=== PATIENT | female | born 1995 | race Caucasian/White ===

== ENCOUNTER 2016-08-23 18:54 | Emergency (ER) | payer BC | END 2016-08-23 21:40 | disposition left against medical advice (07) | LOC: UCEAST 18:54 | DX: J02.9 Acute pharyngitis, unspecified (principal); R05 Cough; R50.9 Fever, unspecified; Z53.21 Procedure and treatment not carried out due to patient leaving prior to being seen by health care provider ==

== ENCOUNTER 2016-08-23 20:55 | Emergency (ER) | payer BC ==
[2016-08-23 21:27] VITALS: BP 125/78
[2016-08-23] MEDS ORDERED: predniSONE TAB* 20 MG PO ONE (21:58)
--- NOTE | 2016-08-23 22:00 | UC ---
Throat Pain/Nasal Prabhu HPI - HPI Summary HPI Summary: 21 YO FEMALE WITH SORE THROAT X 2 DAYS HURTS TO SWALLOW NO FEVER HOARSE TODAY - History of Current Complaint Chief Complaint: UCGeneralIllness Stated Complaint: ST,COUGH,FEVER Time Seen by Provider: 08/23/16 21:54 Hx Obtained From: Patient Hx Last Menstrual Period: Depo injection Onset/Duration: Gradual Onset, Lasting Days Severity: Moderate Pain Intensity: 4 Pain Scale Used: 0-10 Numeric Cough: None Associated Signs & Symptoms: Positive: Negative - Allergies/Home Medications Allergies/Adverse Reactions: Allergies Allergy/AdvReac Type Severity Reaction Status Date / Time Ondansetron [From Zofran] Allergy Severe Hives Verified 08/23/16 21:17 Home Medications: Home Medications medroxyPROGESTERone ACETATE* [DEPO-Provera*] 1 inj SEE INSTRUCTIONS 08/23/16 [ History Confirmed 08/23/16] PMH/Surg Hx/FS Hx/Imm Hx Previously Healthy: Yes Endocrine History Of: Denies: Diabetes Cardiovascular History Of: Denies: Hypertension, Pacemaker/ICD Respiratory History Of: Reports: Asthma GI/ History Of: Denies: Renal Disease - Surgical History Surgical History: None - Family History Known Family History: Positive: Hypertension, Respiratory Disease - Social History Alcohol Use: Rare Substance Use Type: None Smoking Status (MU): Former Smoker Type: Cigarettes Amount Used/How Often: 1 pack per month Have You Smoked in the Last Year: No - Immunization History Most Recent Influenza Vaccination: 2015 Most Recent Tetanus Shot: UTD Most Recent Pneumonia Vaccination: N/A Vaccination Up to Date: Yes Review of Systems Constitutional: Negative Skin: Negative Eyes: Negative ENT: Sore Throat Respiratory: Negative Cardiovascular: Negative Gastrointestinal: Negative Genitourinary: Negative Motor: Negative Neurovascular: Negative Musculoskeletal: Negative Neurological: Negative Psychological: Negative All Other Systems Reviewed And Are Negative: Yes Physical Exam Triage Information Reviewed: Yes Appearance: Well-Appearing, No Pain Distress, Well-Nourished Vital Signs: Initial Vital Signs Temp 99.8 F 08/23/16 21:25 Pulse 98 08/23/16 21:25 Resp 18 08/23/16 21:25 BP 125/78 08/23/16 21:25 Pulse Ox 100 08/23/16 21:25 Vital Signs Reviewed: Yes Eyes: Positive: Conjunctiva Clear ENT: Positive: Hearing grossly normal, Pharyngeal erythema, TMs normal, Other: - HOARSE. Negative: Nasal congestion, Nasal drainage, Tonsillar swelling, Tonsillar exudate Neck: Positive: Supple, Nontender, No Lymphadenopathy Respiratory: Positive: Lungs clear, Normal breath sounds, No respiratory distress, No accessory muscle use Cardiovascular: Positive: RRR, No Murmur Musculoskeletal: Positive: ROM Intact, No Edema Neurological: Positive: Alert Psychological Exam: Normal Skin Exam: Normal Throat Pain/Nasal Course/Dx - Differential Dx/Diagnosis Provider Diagnoses: PHARYNGITIS. LARYNGITIS Discharge - Discharge Plan Condition: Stable Disposition: HOME Prescriptions: Prednisone 60 mg PO DAILY #6 tab Patient Education Materials: Pharyngitis (ED) Referrals: No Primary Care Phys,NOPCP [Primary Care Provider] - Additional Instructions: RECHECK IN 3-4 DAYS IF NOT BETTER TYLENOL RECHECK FOR NEW OR WORSENING SYMPTOMS
== END 2016-08-23 22:19 | disposition home or self-care (01) ==
LOC: UCCORT 20:55
DX: J02.9 Acute pharyngitis, unspecified (principal); J04.0 Acute laryngitis; J45.909 Unspecified asthma, uncomplicated; Z87.891 Personal history of nicotine dependence
CPT/HCPCS: 87651; 99212; G0463; J7512

== ENCOUNTER 2016-08-28 18:51 | Emergency (ER) | payer BC ==
[2016-08-28 20:31] VITALS: BP 117/73
--- NOTE | 2016-08-28 20:45 | ED ---
Influenza-Like Illness - HPI Summary HPI Summary: 21 yr old female with several days of symptoms including, runny nose, sore throat and now coughing. She states she was seen last week, had swollen tonsils and was put on prednisone. She states her strep screen was negative. She is now having a cough, dry and non productive with temp this morning. She is not SOB, and has no CP. She has no other complaints. - History of Current Complaint Chief Complaint: UCRespiratory Time Seen by Provider: 08/28/16 20:30 - Allergy/Home Medications Allergies/Adverse Reactions: Allergies Allergy/AdvReac Type Severity Reaction Status Date / Time Ondansetron [From Zofran] Allergy Intermediate Hives Verified 08/28/16 20:31 PMH/Surg Hx/FS Hx/Imm Hx Endocrine/Hematology History: Denies: Hx Diabetes Cardiovascular History: Denies: Hx Hypertension, Hx Pacemaker/ICD Respiratory History: Reports: Hx Asthma History: Denies: Hx Renal Disease Sensory History: Denies: Hx Hearing Aid Psychiatric History: Denies: Hx Panic Disorder Infectious Disease History: No Infectious Disease History: Denies: History Other Infectious Disease, Traveled Outside the [place] in Last 30 Days - Family History Known Family History: Positive: None, Hypertension, Respiratory Disease - Social History Alcohol Use: Rare Substance Use Type: Reports: None Smoking Status (MU): Former Smoker Type: Cigarettes Amount Used/How Often: 1 pack per month Have You Smoked in the Last Year: No Review of Systems Positive: Fever Positive: Sore Throat, Nasal Discharge Positive: Cough All Other Systems Reviewed And Are Negative: Yes Physical Exam Triage Information Reviewed: Yes Vital Signs On Initial Exam: Initial Vitals Temp Pulse Resp BP Pulse Ox 99.3 F 66 14 117/73 100 08/28/16 20:24 08/28/16 20:24 08/28/16 20:24 08/28/16 20:24 08/28/16 20:24 Vital Signs Reviewed: Yes Appearance: Positive: Well-Appearing, No Pain Distress, Well-Nourished Skin: Positive: Warm Head/Face: Positive: Normal Head/Face Inspection Eyes: Positive: Normal, EOMI ENT: Positive: Normal ENT inspection, Hearing grossly normal, Pharynx normal Neck: Positive: Supple Respiratory/Lung Sounds: Positive: Clear to Auscultation, Breath Sounds Present Cardiovascular: Positive: Normal, RRR. Negative: Murmur Abdomen Description: Positive: Nontender Musculoskeletal: Positive: Normal, Strength/ROM Intact Neurological: Positive: Normal, Sensory/Motor Intact, Alert, Oriented to Person Place, Time, CN Intact II-III Diagnostics - Vital Signs Vital Signs Temp Pulse Resp BP Pulse Ox 08/28/16 20:24 99.3 F 66 14 117/73 100 - Laboratory Lab Statement: Any lab studies that have been ordered have been reviewed, and results considered in the medical decision making process. Flu Symptom Course/Dx - Course Course Of Treatment: 21 yr old female with URI symptoms and cough. DC home symptomatic treatment prn. FU PMD - Diagnoses Provider Diagnoses: URI (upper respiratory infection) Discharge - Discharge Plan Condition: Good Disposition: HOME Patient Education Materials: Cold Symptoms (ED) Referrals: Fanta Black MD [Primary Care Provider] -
== END 2016-08-28 20:56 | disposition home or self-care (01) ==
LOC: UCCORT 18:51
DX: J06.9 Acute upper respiratory infection, unspecified (principal); J45.909 Unspecified asthma, uncomplicated; Z87.891 Personal history of nicotine dependence
CPT/HCPCS: 99211; G0463